=== PATIENT | female | born 1980 | race Caucasian/White ===

== ENCOUNTER 2017-06-14 15:05 | Emergency (ER) | payer OTHER ==
[2017-06-14 15:24] VITALS: BP 107/57; PULSE 98; TEMP 99.1; BMI 24.7
[2017-06-14] MEDS ORDERED: SODIUM CHLORIDE 1,000 ML IV STA (15:51)
[2017-06-14] MEDS ORDERED: ACETAMINOPHEN 1000 MG/100 ML VIAL (NON FORMULARY) IVPB ONE (15:51)
--- NOTE | 2017-06-14 16:15 | PDOC ---
History of Present Illness - General Chief Complaint: Pain Stated Complaint: SORE THROAT BODY ACHES HEADACHE HOT AND COLD Time Seen by Provider: 06/14/17 15:12 - History of Present Illness Initial Comments: 06/14/17 16:12 "Patient is a 36 F with PMHx of anxiety, who presents with flu-like symptoms for 3 days. She endorses cough (2 days), body aches, and headache. She states her cough began as dry and has progressed to a productive yellow sputum. She reports associated sore throat. She also endorses a loss of appetite however she states she has been drinking lots of water. She also reports 1 episode of diarrhea yesterday and she says she woke up nauseous this morning. She states she took advil at 1:00 pm today. Pt endorses mild headache without vomiting, no neck stiffness, no thunderclap. Denies cp, sob, denies fever. Denies sick contacts. Surgeries: tonsillectomy Family Hx: Maternal [place] (age 51) Past History - Past Medical History Allergies/Adverse Reactions: Allergies Allergy/AdvReac Type Severity Reaction Status Date / Time No Known Allergies Allergy Verified 06/14/17 15:07 Home Medications: Ambulatory Orders Duloxetine HCl [Cymbalta] 20 mg PO DAILY 06/14/17 Asthma: No Cancer: No Cardiac Disorders: No COPD: No Diabetes: No HTN: No Seizures: No Thyroid Disease: No - Suicide/Smoking/Psychosocial Hx Smoking History: Never smoked Have you smoked in the past 12 months: No Information on smoking cessation initiated: No Hx Alcohol Use: Yes (RARE) Drug/Substance Use Hx: No Substance Use Type: Alcohol Hx Substance Use Treatment: No Review of Systems - Review of Systems Comments:: 06/14/17 16:14 "GENERAL/CONSTITUTIONAL: No fever. +chills, + weakness. HEAD, EYES, EARS, NOSE AND THROAT: No change in vision. No ear pain or discharge. +sore throat. w/ cough CARDIOVASCULAR: No chest pain or shortness of breath. RESPIRATORY: + productive cough, no wheezing, or hemoptysis. GASTROINTESTINAL: +nausea, no vomiting, +diarrhea. No constipation. GENITOURINARY: No dysuria, frequency, or change in urination. MUSCULOSKELETAL: +myalgia. +rib pain. No neck or back pain. SKIN: No rash NEUROLOGIC: + headache, no vertigo, loss of consciousness, or change in strength /sensation. ENDOCRINE: No increased thirst. No abnormal weight change. HEMATOLOGIC/LYMPHATIC: No anemia, easy bleeding, or history of blood clots. ALLERGIC/IMMUNOLOGIC: No hives or skin allergy." *Physical Exam - Vital Signs Last Vital Signs Temp Pulse Resp BP Pulse Ox 99.1 F 98 H 20 107/57 100 06/14/17 15:07 06/14/17 15:07 06/14/17 15:07 06/14/17 15:07 06/14/17 15:07 - Physical Exam Comments: 06/14/17 16:14 "GENERAL: Awake, alert, and fully oriented, in no acute distress HEAD: No signs of trauma EYES: PERRLA, EOMI, sclera anicteric, conjunctiva clear ENT: Auricles normal inspection, hearing grossly normal, nares patent, oropharynx erythematous without exudates. Moist mucosa NECK: Nontender, no stepoffs, Normal ROM, supple, no lymphadenopathy, JVD, or masses LUNGS: Breath sounds equal, clear to auscultation bilaterally. No wheezes, and no crackles HEART: Regular rate and rhythm, normal S1 and S2, no murmurs, rubs or gallops ABDOMEN: Soft, nontender, normoactive bowel sounds. No guarding, no rebound. No masses EXTREMITIES: Normal range of motion, no edema. No clubbing or cyanosis. No cords, erythema, or tenderness NEUROLOGICAL: Cranial nerves II through XII intact. 5/5 strength and sensation in all extremities, Normal speech, normal gait SKIN: Warm, Dry, normal turgor, no rashes or lesions noted." ED Treatment Course - RADIOLOGY Radiology Studies Ordered: Category Date Time Status CHEST PA & LAT [RAD] Stat Radiology 06/14/17 15:51 Ordered Medical Decision Making - Medical Decision Making 06/14/17 16:14 36 F with cough and malaise x 3 days. Likely viral URI, possibly flu. Pt outside window for tamiflu. - CXR - IVF, tylenol 06/14/17 18:21 CXR clear Pt reassessed - now feels completely better. Vitals normal, pt well appearing, clinically stable for DC. I discussed the physical exam findings, ancillary test results and final diagnoses with the patient. I answered all of the patient's questions. The patient was satisfied with the care received and felt comfortable with the discharge plan and treatment plan. The patient agrees to follow up with the primary care physician within 24-72 hours. *DC/Admit/Observation/Transfer Diagnosis at time of Disposition: URI (upper respiratory infection) - Discharge Dispostion Disposition: HOME Condition at time of disposition: Stable - Referrals - Patient Instructions Printed Discharge Instructions: DI for Viral Syndrome Additional Instructions: Drink plenty of fluids to stay hydrated. Take tylenol or motrin as needed for fevers and sore throat. Follow up with your primary care doctor within 1 week. If you experience worsening fevers, pain, or any other concerning symptoms. - Post Discharge Activity - Attestations Physician Attestion: 06/14/17 18:23 I, Dr. Surinder Drummond MD, attest that this document has been prepared under my direction and personally reviewed by me in its entirety. I further attest, that it accurately reflects all work, treatment, procedures and medical decision -making performed by me.
[2017-06-14] MEDS ORDERED: ACETAMINOPHEN INJECTION 100 ML IVPB ONE (16:31)
== END 2017-06-14 18:49 | disposition home or self-care (01) ==
LOC: FER 15:05
PROC: 3E033NZ Introduction of Analgesics, Hypnotics, Sedatives into Peripheral Vein, Percutaneous Approach (ICD-10-PCS; principal; 2017-06-14)
PROC: 3E0337Z Introduction of Electrolytic and Water Balance Substance into Peripheral Vein, Percutaneous Approach (ICD-10-PCS; 2017-06-14)
DX: J06.9 Acute upper respiratory infection, unspecified (principal)
CPT/HCPCS: 71046-TC; 84703; 96361; 96374; 99283-25

== ENCOUNTER 2021-02-07 02:41 | Emergency (ER) | payer OTHER ==
[2021-02-07 02:50] VITALS: BP 122/68; PULSE 86; TEMP 97.9; BMI 25.0
[2021-02-07] MEDS ORDERED: KETOROLAC TROMETHAMINE 30 MG/1 ML VIAL IM ONE (02:57)
[2021-02-07] MEDS ORDERED: KETOROLAC TROMETHAMINE 30 MG/1 ML VIAL ONE (03:01)
== END 2021-02-07 04:00 | disposition home or self-care (01) ==
LOC: FER 02:41
PROC: 3E0233Z Introduction of Anti-inflammatory into Muscle, Percutaneous Approach (ICD-10-PCS; principal; 2021-02-07)
DX: M54.6 Pain in thoracic spine (principal)
CPT/HCPCS: 71046-TC-FY; 93005; 99284-25